=== PATIENT | male | born 1995 | race Caucasian/White ===

== ENCOUNTER 2023-02-02 21:24 | Emergency (ER) | payer SELFPAY ==
[2023-02-02 21:31] VITALS: BP 141/81; PULSE 78; RESP 18; TEMP 37; O2SAT 98; BMI 28.6
--- NOTE | 2023-02-02 21:53 | HMH.EDGENADL ---
Discharge Plan Disposition Patient Disposition: Home, Self-Care Condition: Good Prescriptions Prescriptions: No Action No Known Home Medications Referrals Follow up/Referrals: Provider,Referral, [Primary Care Provider] - See instructions Activity Restrictions/Add. Instructions Additional Instructions/Restrictions: You were evaluated in the emergency department today. Follow-up with your primary care provider. Return to the emergency department for any new or worsening symptoms. Clinical Impressions Clinical Impression: Impacted cerumen of left ear Instructions Patient Instructions: DI for Cerumen Impaction Discharge ED Provider: Margaret Ojeda General Adult HPI General Chief complaint: Ear Stated complaint: poss object LT ear Time Seen by Provider: 02/02/23 21:33 Mode of Arrival: Ambulatory Source of Information: Patient Limitations: No Limitations Description of Symptoms (Recalled from ER Triage Doc. by RN): pt states he was cleaning his ears out on January 29 with a qtip. pt believes part of the qtip is still in his L ear. pt c/o L ear pressure and difficulty hearing. History of Present Illness HPI narrative: This patient is a 27-year-old male with a history Crohn's disease presenting to the emergency department for evaluation with concern for foreign body sensation in his left ear. He states that this started after he was cleaning out his ear on 01/29 with a qtip. He states that he has pressure in hearing loss in that ear. He denies any fevers, chills, or other concerns. He does report a childhood allergy to the penicillin family. Related Data Home Medications Medication Instructions Recorded Confirmed No Known Home Medications 02/02/23 02/02/23 Allergies Allergy/AdvReac Type Severity Reaction Status Date / Time No Known Allergies Allergy Verified 02/02/23 21:34 [facility] Disclaimer: The information contained in this section may have been updated after the patient was seen, as this information can be updated by other users. Medical History Crohn's disease Social History Smoking Status: Current every day smoker alcohol intake: never current occupational status: employed Travel in the last 8 weeks: None ROS Obtained: Yes All systems reviewed & no additional complaints except as documented 14 point review of systems obtained and negative except as mentioned in HPI. Physical Exam General General appearance: alert and in no apparent distress Head Head exam: atraumatic and normocephalic Eye Eye exam: Present normal appearance, PERRL and EOMI ENT ENT exam: Present normal oropharynx and mucous membranes moist Expanded ENT Exam External ear exam: Present normal external inspection; Absent mastoid tenderness TM/Canal exam: Left TM: cerumen impaction Nose exam: Absent sinus tenderness Nasal speculum exam: Bilateral: normal Neck Neck exam: Present normal inspection and full ROM Chest Chest inspection: Present normal inspection and symmetric chest wall rise Respiratory Respiratory exam: Present normal lung sounds bilaterally; Absent respiratory distress or wheezes Cardiovascular Cardiovascular exam: Present regular rate and normal rhythm Abdominal Exam Abdominal exam: Present soft; Absent distention or tenderness Extremities Exam Extremities exam: Present normal inspection and full ROM Back Exam Back exam: Present normal inspection and full ROM Neurological Exam Neurological exam: Present alert, oriented X3 and CN II-XII intact Psychiatric Psychiatric exam: Present normal affect and normal mood Skin Skin exam: Present warm and dry Medical Decision Making Medical Records Medical records reviewed: Yes I reviewed the patient's medical records. Speedy Inquiry Pt receiving controlled substance: No Vital Signs: 02/02/23 21:31 02/02/23 22:24 02/02/23
[2023-02-02 22:24] VITALS: BP 114/85; PULSE 76; RESP 18; TEMP 36.6; O2SAT 100
== END 2023-02-02 22:28 | disposition home or self-care (01) ==
PROVIDERS: Emergency Provider Emergency Medicine
DX: H61.22 Impacted cerumen, left ear (principal); K50.90 Crohn's disease, unspecified, without complications; F17.200 Nicotine dependence, unspecified, uncomplicated
CPT/HCPCS: 99282

== ENCOUNTER 2023-10-20 06:05 | Emergency (ER) | payer SELFPAY ==
[2023-10-20] VITALS (16 sets, daily range): BP systolic 126–168; BP diastolic 63–105; PULSE 53–97; RESP 16–20; TEMP 37.1–37.2; O2SAT 96–100; BMI 27.2
--- NOTE | 2023-10-20 06:09 | ED_ITS ---
Discharge Plan Disposition Patient Disposition: Still a Patient Prescriptions Prescriptions: No Action No Known Home Medications Referrals Follow up/Referrals: Provider,Referral, [Primary Care Provider] - See instructions Clinical Impressions Clinical Impression: Blood per rectum, Colitis Instructions Patient Instructions: DI for Gastrointestinal Bleeding Discharge ED Provider: Doron Iqbal General Adult HPI <Gregory Stephens MD - Last Filed: 10/20/23 07:04> General Chief complaint: GI Bleed Stated complaint: internal bleeding seen 4/3 Time Seen by Provider: 10/20/23 06:09 History of Present Illness HPI narrative: 19-year-old male with history of recurrent colitis presents with concern for colitis. He reports that he was previously being seen by GI in [place] but lost his insurance coverage and never got scoped or formally diagnosed. He reports that he has been having both dark and bright red blood per rectum for the last 3 to 4 days. He was seen at [place] ED yesterday and he reports that he was diagnosed with colitis on CT and was offered admission, but had to decline because he had to arrange childcare. He presents to [facility] today because he lives in [place] and it was easier to come here then go back to [place]. He was not aware that we do not have GI coverage. Related Data Home Medications Medication Instructions Recorded Confirmed No Known Home Medications 02/02/23 10/20/23 Allergies Allergy/AdvReac Type Severity Reaction Status Date / Time Penicillins Allergy Rash Verified 10/20/23 06:26 PFSH <Gregory Stephens MD - Last Filed: 10/20/23 07:04> [facility] Disclaimer: The information contained in this section may have been updated after the patient was seen, as this information can be updated by other users. Medical History (Updated 10/20/23 @ 12:07 by Doron Iqbal MD) Diverticulitis Crohn's disease Surgical History (Updated 10/20/23 @ 06:25 by Lencho Tang, RN) No history of previous surgery Family History (Updated 10/20/23 @ 06:25 by Lencho Tang, RN) Other No significant family history Social History (Updated 10/20/23 @ 06:25 by Lencho Tang, RN) Smoking Status: Current every day smoker alcohol intake: never current occupational status: employed Travel in the last 8 weeks: None <Gregory Stephens MD - Last Filed: 10/20/23 07:04> ROS Obtained: Yes All systems reviewed & no additional complaints except as documented Physical Exam <Gregory Stephens MD - Last Filed: 10/20/23 07:04> General General appearance: alert and in no apparent distress Head Head exam: atraumatic and normocephalic Eye Eye exam: Present normal appearance, PERRL and EOMI ENT ENT exam: Present normal oropharynx and normal external ear exam Neck Neck exam: Present normal inspection and full ROM Chest Chest inspection: Present normal inspection and symmetric chest wall rise; Absent tenderness Respiratory Respiratory exam: Present normal lung sounds bilaterally; Absent respiratory distress Cardiovascular Cardiovascular exam: Present regular rate and normal rhythm Abdominal Exam Abdominal exam: Present soft and tenderness (Mild, generalized); Absent distention or guarding Extremities Exam Extremities exam: Present normal inspection; Absent edema or joint swelling Back Exam Back exam: Present normal inspection; Absent tenderness Neurological Exam Neurological exam: Present alert and oriented X3; Absent motor sensory deficit Psychiatric Psychiatric exam: Present normal affect and normal mood Skin Skin exam: Present warm, dry and normal color Lymphatic Lymphatic Findings: no adenopathy Medical Decision Making <Gregory Stephens MD - Last Filed: 10/20/23 07:04> Medical Records Medical records reviewed: Yes I reviewed the patient's medical records. Speedy Inquiry Pt receiving controlled substance: No Speedy was queried for this patient: No Vital Signs: 10/20/23 06:07 10/20/23 06:30 10/20/23 07:00 Temperature 98.9 F Temperature Source Oral Pulse Rate 82 70 Pulse Rate [Left] 97 H Respiratory Rate 20 20 Blood Pressure 150/92 H 143/87 H Blood Pressure [Right Arm] 168/102 H Blood Pressure Mean 111 105 Blood Pressure Mean [Right Arm] 124 Blood Pressure Source [Right Arm] Automatic Cuff Blood Pressure Position [Right Arm] Sitting 02 Sat by Pulse Oximetry 100 98 99 Oxygen Delivery Method Room Air Room Air Room Air 10/20/23 07:30 10/20/23 08:00 10/20/23 08:33 Temperature Temperature Source Pulse Rate 71 Pulse Rate [Left] Respiratory Rate Blood Pressure 132/81 132/92 H 155/99 H Blood Pressure [Right Arm] Blood Pressure Mean 95 103 117 Blood Pressure Mean [Right Arm] Blood Pressure Source [Right Arm] Blood Pressure Position [Right Arm] 02 Sat by Pulse Oximetry 98 96 97 Oxygen Delivery Method Room Air Room Air Room Air 10/20/23 09:00 10/20/23 09:31 10/20/23 10:00 Temperature Temperature Source Pulse Rate 61 53 L 55 L Pulse Rate [Left] Respiratory Rate Blood Pressure 157/88 H 128/63 127/82 Blood Pressure [Right Arm] Blood Pressure Mean 112 Blood Pressure Mean [Right Arm] Blood Pressure Source [Right Arm] Blood Pressure Position [Right Arm] 02 Sat by Pulse Oximetry 99 97 96 Oxygen Delivery Method Room Air 10/20/23 11:00 10/20/23 11:30 Temperature Temperature Source Pulse Rate 81 86 Pulse Rate [Left] Respiratory Rate Blood Pressure 126/96 H 145/93 H Blood Pressure [Right Arm] Blood Pressure Mean 110 Blood Pressure Mean [Right Arm] Blood Pressure Source [Right Arm] Blood Pressure Position [Right Arm] 02 Sat by Pulse Oximetry 99 99 Oxygen Delivery Method Lab Data Lab results reviewed: Yes I reviewed the patient's lab results. Lab Results 10/20/23 07:45: WBC 9.4, RBC 5.60, Hgb 16.3, Hct 50.3, MCV 89.7, MCH 29.0, MCHC 32.4, RDW 14.1, Plt Count 174, MPV 10.3, Neut % (Auto) 65.0, Lymph % (Auto) 22.3, [place] % (Auto) 5.8, Eos % (Auto) 6.0, Baso % (Auto) 0.9, Neut # (Auto) 6.1, Lymph # (Auto) 2.1, [place] # (Auto) 0.6, Eos # (Auto) 0.6 H, Baso # (Auto) 0.1, ESR 13, Lipase 65 10/20/23 : Sodium 139, Potassium 4.2, Chloride 110 H, Carbon Dioxide 25, Anion Gap 8.2, BUN 11, Creatinine 0.60 L, Estimated Creat Clear 223, Estimated GFR 160, Est GFR ( Amer) 194, Glucose 96, Calcium 9.2, Total Bilirubin 0.3, AST 36, ALT 43, Alkaline Phosphatase 88, Total Protein 7.2, Albumin 4.0, Globulin 3.2, Albumin/Globulin Ratio 1.3, Lipase 59 10/20/23 07:45 10/20/23 Unknown Orders (Tests/Meds): ED MEDICATIONS Generic Name Dose Route Start Last Admin Trade Name Freq PRN Reason Stop Dose Admin Lactated Ringer's 1,000 mls @ 999 mls/hr 10/20/23 11:28 10/20/23 11:39 Lactated Ringer's 1000 Ml Bag IV 10/20/23 12:28 999 mls/hr .Q1H1M ONE Administration Sodium Chloride 10 ml 10/20/23 08:34 10/20/23 08:35 Sodium Chloride 0.9% 10ml Syr (Rad Only) IV 11/19/23 08:33 10 ml NEEDED PRN Administration Maintain IV Site Discontinued Medications Generic Name Dose Route Start Last Admin Trade Name Freq PRN Reason Stop Dose Admin Hydromorphone HCl 0.5 mg 10/20/23 11:28 10/20/23 11:39 Hydromorphone 2mg/Ml Syringe IV 10/20/23 11:29 0.5 mg ONCE ONE Administration Iopamidol 100 ml 10/20/23 08:34 10/20/23 08:35 Iopamidol-370 (76%);100ml Bottle IV 10/20/23 08:35 100 ml ONCE ONE Administration Morphine Sulfate 4 mg 10/20/23 07:38 10/20/23 07:53 Morphine 4mg/Ml Syringe IV 10/20/23 07:39 4 mg ONCE ONE Administration Morphine Sulfate 4 mg 10/20/23 10:47 10/20/23 10:50 Morphine 4mg/Ml Syringe IV 10/20/23 10:48 4 mg ONCE ONE Administration Ondansetron HCl 4 mg 10/20/23 07:15 10/20/23 07:21 Ondansetron 4mg Odt SL 10/20/23 07:16 4 mg ONCE ONE Administration Sodium Chloride 50 ml 10/20/23 08:34 10/20/23 08:35 0.9 % Sodium Chloride 50 Ml Vial IV 10/20/23 08:35 50 ml ONCE ONE Administration ORDERS Category Date Time Status CT angio abdomen pelvis Stat Cat Scan 10/20/23 07:38 Completed CBC w/Auto Diff [Complete Blood Count Auto Diff] Stat Lab 10/20/23 07:45 Completed CMP [Comprehensive Metabolic Panel] Stat Lab 10/20/23 Completed ESR [Erythrocyte Sedimentation Rate] Stat Lab 10/20/23 07:45 Completed Lipase Stat Lab 10/20/23 Completed Lipase Stat Lab 10/20/23 07:45 Completed Blood Culture Stat Micro 10/20/23 12:04 Ordered Medical Decision Narrative: 27-year-old male with history of colitis presents with both dark and bright red blood per rectum for the last 3 to 4 days, abdominal pain, was seen at [place] ED yesterday but left because he had to take care of his child.. History was obtained interactive discussion with patient, chart review. On arrival, patient is [afebrile, hemodynamically stable, satting appropriately, alert, oriented x4, GCS 15], moving all extremities spontaneously. Full physical exam performed and significant for mild abdominal tenderness, rectal exam deferred initially. Differential includes but is not limited to Crohn's, ulcerative colitis, infectious colitis. We called [place] ED and have their records faxed over. Per the records, patient had essentially normal labs, had prominent sigmoid colitis on CT imaging. At this time care handed off to oncoming physician with plan for discussion with [place] regarding disposition. <Doron Iqbal MD - Last Filed: 10/20/23 12:07> Vital Signs: 10/20/23 06:07 10/20/23 06:30 10/20/23 07:00 Temperature 98.9 F Temperature Source Oral Pulse Rate 82 70 Pulse Rate [Left] 97 H Respiratory Rate 20 20 Blood Pressure 150/92 H 143/87 H Blood Pressure [Right Arm] 168/102 H Blood Pressure Mean 111 105 Blood Pressure Mean [Right Arm] 124 Blood Pressure Source [Right Arm] Automatic Cuff Blood Pressure Position [Right Arm] Sitting 02 Sat by Pulse Oximetry 100 98 99 Oxygen Delivery Method Room Air Room Air Room Air 10/20/23 07:30 10/20/23 08:00 10/20/23 08:33 Temperature Temperature Source Pulse Rate 71 Pulse Rate [Left] Respiratory Rate Blood Pressure 132/81 132/92 H 155/99 H Blood Pressure [Right Arm] Blood Pressure Mean 95 103 117 Blood Pressure Mean [Right Arm] Blood Pressure Source [Right Arm] Blood Pressure Position [Right Arm] 02 Sat by Pulse Oximetry 98 96 97 Oxygen Delivery Method Room Air Room Air Room Air 10/20/23 09:00 10/20/23 09:31 10/20/23 10:00 Temperature Temperature Source Pulse Rate 61 53 L 55 L Pulse Rate [Left] Respiratory Rate Blood Pressure 157/88 H 128/63 127/82 Blood Pressure [Right Arm] Blood Pressure Mean 112 Blood Pressure Mean [Right Arm] Blood Pressure Source [Right Arm] Blood Pressure Position [Right Arm] 02 Sat by Pulse Oximetry 99 97 96 Oxygen Delivery Method Room Air 10/20/23 11:00 10/20/23 11:30 Temperature Temperature Source Pulse Rate 81 86 Pulse Rate [Left] Respiratory Rate Blood Pressure 126/96 H 145/93 H Blood Pressure [Right Arm] Blood Pressure Mean 110 Blood Pressure Mean [Right Arm] Blood Pressure Source [Right Arm] Blood Pressure Position [Right Arm] 02 Sat by Pulse Oximetry 99 99 Oxygen Delivery Method Lab Data Lab Results 10/20/23 07:45: WBC 9.4, RBC 5.60, Hgb 16.3, Hct 50.3, MCV 89.7, MCH 29.0, MCHC 32.4, RDW 14.1, Plt Count 174, MPV 10.3, Neut % (Auto) 65.0, Lymph % (Auto) 22.3, [place] % (Auto) 5.8, Eos % (Auto) 6.0, Baso % (Auto) 0.9, Neut # (Auto) 6.1, Lymph # (Auto) 2.1, [place] # (Auto) 0.6, Eos # (Auto) 0.6 H, Baso # (Auto) 0.1, ESR 13, Lipase 65 10/20/23 : Sodium 139, Potassium 4.2, Chloride 110 H, Carbon Dioxide 25, Anion Gap 8.2, BUN 11, Creatinine 0.60 L, Estimated Creat Clear 223, Estimated GFR 160, Est GFR ( Amer) 194, Glucose 96, Calcium 9.2, Total Bilirubin 0.3, AST 36, ALT 43, Alkaline Phosphatase 88, Total Protein 7.2, Albumin 4.0, Globulin 3.2, Albumin/Globulin Ratio 1.3, Lipase 59 Orders (Tests/Meds): ED MEDICATIONS Generic Name Dose Route Start Last Admin Trade Name Freq PRN Reason Stop Dose Admin Lactated Ringer's 1,000 mls @ 999 mls/hr 10/20/23 11:28 10/20/23 11:39 Lactated Ringer's 1000 Ml Bag IV 10/20/23 12:28 999 mls/hr .Q1H1M ONE Administration Sodium Chloride 10 ml 10/20/23 08:34 10/20/23 08:35 Sodium Chloride 0.9% 10ml Syr (Rad Only) IV 11/19/23 08:33 10 ml NEEDED PRN Administration Maintain IV Site Discontinued Medications Generic Name Dose Route Start Last Admin Trade Name Andreiq PRN Reason Stop Dose Admin Hydromorphone HCl 0.5 mg 10/20/23 11:28 10/20/23 11:39 Hydromorphone 2mg/Ml Syringe IV 10/20/23 11:29 0.5 mg ONCE ONE Administration Iopamidol 100 ml 10/20/23 08:34 10/20/23 08:35 Iopamidol-370 (76%);100ml Bottle IV 10/20/23 08:35 100 ml ONCE ONE Administration Morphine Sulfate 4 mg 10/20/23 07:38 10/20/23 07:53 Morphine 4mg/Ml Syringe IV 10/20/23 07:39 4 mg ONCE ONE Administration Morphine Sulfate 4 mg 10/20/23 10:47 10/20/23 10:50 Morphine 4mg/Ml Syringe IV 10/20/23 10:48 4 mg ONCE ONE Administration Ondansetron HCl 4 mg 10/20/23 07:15 10/20/23 07:21 Ondansetron 4mg Odt SL 10/20/23 07:16 4 mg ONCE ONE Administration Sodium Chloride 50 ml 10/20/23 08:34 10/20/23 08:35 0.9 % Sodium Chloride 50 Ml Vial IV 10/20/23 08:35 50 ml ONCE ONE Administration ORDERS Category Date Time Status CT angio abdomen pelvis Stat Cat Scan 10/20/23 07:38 Completed CBC w/Auto Diff [Complete Blood Count Auto Diff] Stat Lab 10/20/23 07:45 Completed CMP [Comprehensive Metabolic Panel] Stat Lab 10/20/23 Completed ESR [Erythrocyte Sedimentation Rate] Stat Lab 10/20/23 07:45 Completed Lipase Stat Lab 10/20/23 Completed Lipase Stat Lab 10/20/23 07:45 Completed Blood Culture Stat Micro 10/20/23 12:04 Ordered Medical Decision Narrative: 27-year-old male with history of colitis presents with both dark and bright red blood per rectum for the last 3 to 4 days, abdominal pain, was seen at [place] ED yesterday but left because he had to take care of his child.. History was obtained interactive discussion with patient, chart review. On arrival, patient is [afebrile, hemodynamically stable, satting appropriately, alert, oriented x4, GCS 15], moving all extremities spontaneously. Full physical exam performed and significant for mild abdominal tenderness, rectal exam deferred initially. Differential includes but is not limited to Crohn's, ulcerative colitis, infectious colitis. We called [place] ED and have their records faxed over. Per the records, patient had essentially normal labs, had prominent sigmoid colitis on CT imaging. At this time care handed off to oncoming physician with plan for discussion with [place] regarding disposition. Doron Iqbal: Upon assumption of care patient is hemodynamically stable. Patient has had years of persistent diffuse abdominal pain, intermittent bloody bowel movements. This bout has been going on for 5 days, 1 large bloody bowel movement per day with clots. CT read yesterday shows prominent sigmoid colitis, hematologic labs yesterday creatinine 0.9, no transaminitis, white blood cell count 10.7, hemoglobin 15.7, CRP, lipase normal. Upon my evaluation patient is complaining of persistent abdominal pain that is not significantly worse from his baseline. He states that yesterday he was offered admission for GI scope which he declined due to social reasons which he has figured out. He presented here today as it was the closest hospital to his home. Unfortunately we do not have GI services at this hospital. Patient does not have significant tachycardia or variable change in abdominal pain from his baseline. He may have undiagnosed Crohn's versus ulcerative colitis, among others. ED note from [place] that is faxed states he has Crohn's disease however patient has never been told of this and has never had a colonoscopy. He was lost to follow-up with gastroenterology due to insurance. Given that patient was evaluated less than 24 hours ago, is hemodynamically normal and has unchanged physical exam workup with labs and imaging at this institution is unlikely to change ultimate disposition. The case will be discussed with [place] prior to conducting workup here to see if they will accept patient for transfer for evaluation at their facility. The case was discussed with [place] by nursing, they do not have GI coverage until next week. CT imaging shows severe colitis with reactive lymph nodes, diverticulitis may be possible, neoplasm is not excluded however less likely. Upon repeat evaluation patient had persistent pain for which morphine was redosed. Given intractable abdominal pain with severe colitis and thickening patient would benefit from urgent gastroenterology evaluation on an inpatient basis. The case was discussed with Sabianist Michi Warner who recommends a dose of Zosyn or equivalent. Given the patient is allergic to penicillin and read may represent diverticulitis dose of ertapenem was given after blood cultures were drawn in the ER. Upon repeat evaluation patient had continued pain for which Dilaudid was administered. Patient was transferred in stable condition. Procedures <Gregory Stephens MD - Last Filed: 10/20/23 07:04> Risk/Benefits of Procedure(s) Were Explained: Yes Critical Care <Gregory Stephens MD - Last Filed: 10/20/23 07:04> Critical Care Time Critical Care Time: No
--- NOTE | 2023-10-20 06:13 | PC.NURSE ---
Called [facility] for medical records for pt. NO answer, left a voicemail. CR
--- NOTE | 2023-10-20 06:21 | PC.NURSE ---
Called Shavon Quiles Supervisor to get records from patient's ER visit 10/19/2023
--- NOTE | 2023-10-20 06:48 | PC.NURSE ---
Records from [facility] received and given to Attending
--- NOTE | 2023-10-20 07:14 | PC.NURSE ---
called [facility] to see about sending this pt to [facility] per Dr Iqbal. They advised they would call back as soon as they get a hold of GI.
[2023-10-20] MEDS: ONDANSETRON 4MG ODT 4 MG SL (07:21)
--- NOTE | 2023-10-20 07:38 | CT_ITS ---
FINAL REPORT TECHNIQUE: Pre-and postcontrast images of the abdomen and pelvis were performed by computed tomography. Extensive 3-D reconstruction images were performed. A CTA was performed. This study was performed with techniques to keep radiation doses as low as reasonably achievable (ALARA). Individualized dose reduction techniques using automated exposure control or adjustment of mA and/or kV according to the patient's size were employed. CLINICAL HISTORY: diffuse pain, Hematochezia x 5-6 days COMPARISON: None FINDINGS: CTA ABDOMEN AND PELVIS: The liver, spleen, pancreas, adrenal glands, and kidneys are unremarkable in appearance. No evidence of mass or free fluid is identified in the abdomen. There is marked thickening of the wall of the mid to distal sigmoid colon, consistent with colitis or diverticulitis. Neoplasm is not excluded but felt to be less likely. The appendix is normal in appearance. There is mild adjacent bladder wall thickening, likely inflammatory. Several mildly enlarged and adjacent mesenteric nodes are identified. No free fluid is identified in the pelvis. CTA images show a normal-appearing abdominal aorta. The origins of the celiac axis and superior mesenteric artery are unremarkable. 2 right renal arteries are present and are normal in appearance. The left renal artery is also normal in appearance. The distal aorta and iliac arteries through the pelvis are unremarkable. IMPRESSION: No intra-abdominal significant vascular abnormality is identified. Marked thickening of the mid to distal sigmoid colon consistent with colitis/diverticulitis. Neoplasm is not excluded but less likely. There is mild adjacent bladder wall thickening, likely inflammatory. There are several mildly enlarged mesenteric nodes adjacent to the sigmoid colon, once again likely inflammatory although neoplasm cannot be excluded. Follow-up colonoscopy may be helpful. Reviewed, Interpreted and Dictated by Jun Khanna III, MD Transcribed by Johanna Wall Authenticated and [facility]
[2023-10-20] MEDS: MORPHINE 4MG/ML SYRINGE 4 MG IV ×2 (07:53→10:50)
[2023-10-20 07:56] LABS: Basophils # 0.1 K/mm3 (0-0.2); Basophils % 0.9 % (0.1-2.0); Eosinophils # 0.6 K/mm3 (0.0-0.4); Hematocrit 50.3 % (42.0-52.0); Hemoglobin 16.3 g/dL (14.1-18.0); Lymphocytes # 2.1 K/mm3 (0.7-4.5); Lymphocytes % 22.3 % (10-50); Mean Corpuscular HGB Conc 32.4 g/dL (31.8-35.4); Mean Corpuscular Volume 89.7 fl (80-94); Mean Platelet Volume 10.3 fl (7.4-10.4); Monocytes # 0.6 K/mm3 (0.1-1.0); Monocytes % 5.8 % (1.7-9.3); Neutrophils # 6.1 K/mm3 (1.8-7.8); Platelet Count 174 K/mm3 (142-424); Red Cell Distribution Width 14.1 % (11.5-17.5); White Blood Count 9.4 K/mm3 (4.8-10.8)
[2023-10-20 08:02] LABS: Chloride 110 mmol/L (98-107); Potassium 4.2 mmoL/L (3.5-5.1); Sodium 139 mmol/L (136-145)
[2023-10-20 08:04] LABS: Alanine Aminotransferase 43 U/L (12-78); Aspartate Amino Transferase 36 U/L (17-59); Blood Urea Nitrogen 11 mg/dl (9-20); Creatinine Clearance Estimated 223 mL/min (50-200); Estimated Glomerular Filt Rate 160 ml/min (>60); GFR (African American) 194 ML/MIN (>60)
[2023-10-20 08:05] LABS: Albumin/Globulin Ratio 1.3 (1.1-1.8); Alkaline Phosphatase 88 U/L (38-126); Anion Gap 8.2 mEq/L (5-15); Bilirubin,Total 0.3 mg/dl (0.2-1.3); Calcium 9.2 mg/dl (8.4-10.2); Carbon Dioxide 25 mmol/L (22.0-30.0); Globulin 3.2 g/dL (1.3-3.2); Glucose 96 mg/dl (74-100); Lipase 59 U/L (23-300); Total Protein,Serum 7.2 g/dl (6.3-8.2)
--- NOTE | 2023-10-20 08:05 | PC.NURSE ---
[facility] called back and advised that they did not have GI until next week
--- NOTE | 2023-10-20 08:22 | PC.NURSE ---
Patient transported to CT
--- NOTE | 2023-10-20 08:27 | PC.NURSE ---
Rounded on patient, no needs voiced at this time.
--- NOTE | 2023-10-20 08:32 | PC.NURSE ---
Ambulatory from radiology without complications
[2023-10-20] MEDS: 0.9 % SODIUM CHLORIDE 50 ML VIAL IV (08:35)
[2023-10-20] MEDS: IOPAMIDOL-370 (76%);100ML BOTTLE 100 ML IV (08:35)
[2023-10-20] MEDS: SODIUM CHLORIDE 0.9% 10ML SYR (RAD ONLY) 10 ML IV (08:35)
[2023-10-20 08:38] LABS: Lipase 65 U/L (23-300)
[2023-10-20 08:39] LABS: Erythrocyte Sedimentation Rate 13 mm/hr (0-15)
--- NOTE | 2023-10-20 11:16 | PC.NURSE ---
called [facility] per Dr Iqbal to speak with about this pt. [facility] advisd that a Dr Warner would be calling back to speak with Dr Iqbal
[2023-10-20] MEDS: LACTATED RINGERS 1000ML 1,000 ML 999 ML IV (11:39)
[2023-10-20] MEDS: HYDROMORPHONE 2MG/ML SYRINGE 0.5 MG IV (11:39)
--- NOTE | 2023-10-20 12:01 | PC.NURSE ---
Buddhist Dr Warner called and is speaking with Dr Iqbal about this pt at this time
--- NOTE | 2023-10-20 12:06 | PC.NURSE ---
rounded on pt, no needs at this time
--- NOTE | 2023-10-20 12:06 | PC.NURSE ---
[facility] accepted [facility] , waiting bed assignment
--- NOTE | 2023-10-20 12:12 | PC.NURSE ---
lab aware of blood culture order
--- NOTE | 2023-10-20 12:30 | PC.NURSE ---
Report called to GINA Galloway at [facility].
--- NOTE | 2023-10-20 12:39 | PC.NURSE ---
pt states that if she isnt getting anything other than the medicine ordered at this time, she wanted to leave cause she can go home and hurt and lay in pain, states that she wants to see the doctor to get a game plan, aware
[2023-10-20] MEDS: ERTAPENEM SODIUM 1 GM in 0.9 % SODIUM CHLORIDE 50 ML IV (12:58)
== END 2023-10-20 14:00 | disposition short-term general hospital (02) ==
PROVIDERS: Emergency Provider Emergency Medicine
DX: R10.0 Acute abdomen (principal); K62.5 Hemorrhage of anus and rectum; K52.9 Noninfective gastroenteritis and colitis, unspecified; I88.0 Nonspecific mesenteric lymphadenitis; F17.210 Nicotine dependence, cigarettes, uncomplicated
CPT/HCPCS: 36415; 74174; 80053; 83690; 85025; 85651; 87040; 96361; 96365; 96372; 96375; 96376; 99285; J1335; Q9967

== ENCOUNTER 2024-03-23 09:32 | Emergency (ER) | payer SELFPAY ==
[2024-03-23 10:32] VITALS: BP 147/84; PULSE 78; RESP 18; TEMP 36.8; O2SAT 99; BMI 30.7
[2024-03-23 10:46] LABS: UTC Strep Screen (Rapid) Negative (Negative)
--- NOTE | 2024-03-23 10:55 | EXP.UTC ---
Discharge Plan Disposition Patient Disposition: Home, Self-Care Condition: Good Prescriptions Prescriptions: New azithromycin [Zithromax] 250 mg tablet 250 mg PO UD DOSE PK Qty: 6 0RF Rx Instructions: Take two (2) tablets today, then one (1) tablet days #2 thru #5 methylprednisolone 4 mg Tablets,Dose Pack 4 mg PO DIRECTED 6 Days Qty: 21 0RF Rx Instructions: Take 1 pack as directed for 6 days medbtulkysirvlb-loyxmprac-LG [Bromfed DM] 2-30-10 mg/5 mL Syrup 5 ml PO Q6H PRN (Reason: Cough) Qty: 240 0RF Referrals Follow up/Referrals: Provider,Referral, MD [Primary Care Provider] - See instructions Activity Restrictions/Add. Instructions Additional Instructions/Restrictions: Drink plenty of fluids. Take tylenol or ibuprofen for pain or fever. Take the medications as directed. Follow up with your regular doctor. GO TO THE ER FOR ANY WORSENING SYMPTOMS Clinical Impressions Clinical Impression: Pharyngitis, Acute viral syndrome Stand Alone Forms Stand Alone Forms: Work/School Release Instructions Patient Instructions: Sore Throat, DI for Pharyngitis/Tonsillopharyngitis -- Adult Print Language Print Language: Yoruba Discharge ED Provider: Sidney Mead [facility] General Stated complaint: sore throat, fever, headache, nausea, body aches Mode of Arrival: Ambulatory Source of Information: Patient Limitations: No Limitations Time Seen by Provider: 03/23/24 10:55 Description of Symptoms (Recalled from Triage Doc. by RN): Patient reports possible strep. HEENT Symptoms (Recalled from RN notes): Yes Resp Symptoms (Recalled from RN notes): No Skin Symptoms (Recalled from RN notes): No MS Symptoms (Recalled from RN notes): No Functional Status (Recalled from RN notes): wnl Related Data Previous Rx's ?Medication ?Instructions ?Recorded azithromycin 250 mg tablet 250 mg PO UD DOSE PK #6 tabs 03/23/24 (Zithromax) ilxhdwaddwmjjxa-gfhqauzvgpqbcli-UW 5 ml PO Q6H PRN Cough #240 mL 03/23/24 2 mg-30 mg-10 mg/5 mL oral syrup (Bromfed DM) methylprednisolone 4 mg tablets in 4 mg PO DIRECTED 6 days #21 tabs 03/23/24 a dose pack Allergies Allergy/AdvReac Type Severity Reaction Status Date / Time Penicillins Allergy Rash Verified 10/20/23 06:26 Worker's Comp Is this a Worker's Comp case?: No [facility] Disclaimer: The information contained in this section may have been updated after the patient was seen, as this information can be updated by other users. Medical History (Updated 03/23/24 @ 11:22 by Sidney Mead APRN) Diverticulitis Crohn's disease Surgical History (Updated 10/20/23 @ 06:25 by Lencho Tang, RN) No history of previous surgery Family History (Updated 10/20/23 @ 06:25 by Lencho Tang, RN) Other No significant family history Social History (Updated 10/20/23 @ 06:25 by Lencho Tang, RN) Smoking Status: Current every day smoker alcohol intake: never current occupational status: employed Travel in the last 8 weeks: None ROS Obtained: Yes All systems reviewed & no additional complaints except as documented Constitutional Constitutional: Reports chills and Reports fever(s) Eyes Eyes: Denies eye discharge ENT Ears, Nose, Mouth, and Throat: Reports as per HPI Cardiovascular Cardiovascular: Denies chest pain Respiratory Respiratory: Denies chest congestion and Reports cough Gastrointestinal Gastrointestingal: Reports nausea; Denies abdominal pain, constipation, cramping, diarrhea or vomiting Musculoskeletal Musculoskeletal: Denies arthralgias Integumentary/Breasts Skin/Breast: Denies rash Neurologic Neurologic: Denies paresthesias Physical Exam General General appearance: alert and in no apparent distress Head Head exam: atraumatic, normocephalic and normal inspection Eye Eye exam: Present normal appearance, PERRL and EOMI ENT ENT exam: Present mucous membranes moist and normal external ear exam Expanded ENT Exam TM/Canal exam: Bilateral TM: erythema and bulging Nose exam: Absent sinus tenderness Mouth exam: Present normal external inspection; Absent drooling Teeth exam: Present normal inspection Throat exam: Present tonsillar erythema, tonsillomegaly and tonsillar exudate Neck Neck exam: Present normal inspection, full ROM and trachea midline; Absent tenderness, meningismus or lymphadenopathy Chest Chest inspection: Present normal inspection and symmetric chest wall rise; Absent tenderness Respiratory Respiratory exam: Present normal lung sounds bilaterally; Absent respiratory distress, wheezes, stridor or accessory muscle use Cardiovascular Cardiovascular exam: Present regular rate and normal rhythm; Absent systolic murmur or diastolic murmur Abdominal Exam Abdominal exam: Present soft and normal bowel sounds; Absent distention, tenderness, guarding, rebound or rigidity Extremities Exam Extremities exam: Present normal inspection and normal capillary refill; Absent calf tenderness Back Exam Back exam: Present normal inspection and full ROM; Absent tenderness, CVA tenderness (R) or CVA tenderness (L) Neurological Exam Neurological exam: Present alert, oriented X3 and CN II-XII intact Psychiatric Psychiatric exam: Present normal affect and normal mood Skin Skin exam: Present warm, dry, intact and normal color Medical Decision Making Medical Records Medical records reviewed: No I reviewed the patient's medical records. Speedy Inquiry Pt receiving controlled substance: No Vital Signs: 03/23/24 10:32 Temperature 98.2 F Temperature Source Oral Pulse Rate [Radial] 78 Respiratory Rate 18 Blood Pressure [Right Arm] 147/84 H Blood Pressure Mean [Right Arm] 105 Blood Pressure Source [Right Arm] Automatic Cuff Blood Pressure Position [Right Arm] Sitting 02 Sat by Pulse Oximetry 99 Oxygen Delivery Method Room Air Lab Data Lab results reviewed: Yes I reviewed the patient's lab results. Lab Results 03/23/24 10:32: Strep Scn Rapid Clinic Negative Orders (Tests/Meds): ORDERS Category Date Time Status Strep Screen Confirmation Stat Micro 03/23/24 10:32 Received
[2024-03-23 11:41] VITALS: BP 147/84; PULSE 78; RESP 18; TEMP 36.8; O2SAT 99
== END 2024-03-23 11:49 | disposition home or self-care (01) ==
PROVIDERS: Emergency Provider Nurse Practitioner Family
DX: J02.9 Acute pharyngitis, unspecified (principal); R51.9 Headache, unspecified; R50.9 Fever, unspecified; B34.9 Viral infection, unspecified
CPT/HCPCS: 87635; 87880; 99204; 99212; G0463